=== PATIENT | female | born 1995 | race Two or more races ===

== ENCOUNTER 2017-09-28 12:53 | Emergency (ER) | payer OTHER ==
[2017-09-28 13:02] VITALS: BP 108/70; PULSE 71; TEMP 98; BMI 23.8
--- NOTE | 2017-09-28 13:28 | PDOC ---
History of Present Illness - General Chief Complaint: Redness To Affected Area Stated Complaint: FINGER INJURY Time Seen by Provider: 09/28/17 13:12 History Source: Patient - History of Present Illness Timing/Duration: reports: other Location: reports: extremities Past History - Past Medical History Allergies/Adverse Reactions: Allergies Allergy/AdvReac Type Severity Reaction Status Date / Time No Known Allergies Allergy Verified 09/28/17 13:02 - Suicide/Smoking/Psychosocial Hx Smoking History: Never smoked Have you smoked in the past 12 months: No Information on smoking cessation initiated: No Hx Alcohol Use: No Drug/Substance Use Hx: No Review of Systems - Review of Systems Constitutional: No: Fever *Physical Exam - Vital Signs Last Vital Signs Temp Pulse Resp BP Pulse Ox 98.0 F 71 16 108/70 100 09/28/17 13:00 09/28/17 13:00 09/28/17 13:00 09/28/17 13:00 09/28/17 13:00 - Physical Exam General Appearance: Yes: Appropriately Dressed. No: Apparent Distress HEENT: positive: Normal Voice Neck: positive: Supple Respiratory/Chest: negative: Respiratory Distress Integumentary: positive: Dry, Warm, Other (small superficial open wound to tip of R 5th digit, no erythema, swelling or discharge) Neurologic: positive: Fully Oriented, Alert, Normal Mood/Affect Medical Decision Making - Medical Decision Making 09/28/17 13:25 21-year-old female, no significant history, here for evaluation of finger wound. Patient states 5 days ago she sustained an avulsion lac to tip of right pinky with a knife and here today because she noticed a small amount of pus to site yesterday. Otherwise no worsening pain, swelling and no fever. Patient well-appearing and stable with minor superficial open wound to tip of right 5th digit with no evidence of infection at this time. Tetanus UTD. Local wound care and dressing in ED. Dc with reassurance and local wound care at home. Reasons to return discussed with patient 09/28/17 13:27 *DC/Admit/Observation/Transfer Diagnosis at time of Disposition: Wound, open, finger Qualifiers: Encounter type: initial encounter Qualified Code(s): S61.209A - Unspecified open wound of unspecified finger without damage to nail, initial encounter - Discharge Dispostion Disposition: HOME Condition at time of disposition: Good - Referrals - Patient Instructions Printed Discharge Instructions: Minor Wounds (Alternative Therapy) Additional Instructions: vu herida no parece estar infectada en perla momento. Por favor, aplique bacitracin o Neosporin glenis vez al da para herir a fin de prevenir la infeccin y mantener la herida tapada hasta que comience a formar costras y se forme sarna. Los signos de infeccin son enrojecimiento alrededor de la herida, hinchazn y fiebre. Si los sntomas ocurren, regrese para glenis nueva evaluacin Print Language: MACANESE - Post Discharge Activity
== END 2017-09-28 14:13 | disposition home or self-care (01) ==
LOC: JERFT 12:53
DX: S61.206A Unspecified open wound of right little finger without damage to nail, initial encounter (principal); W26.0XXA Contact with knife, initial encounter; Y93.89 Activity, other specified; Y92.89 Other specified places as the place of occurrence of the external cause; Y99.8 Other external cause status
CPT/HCPCS: 99281-25

== ENCOUNTER 2018-11-28 15:08 | Emergency (ER) | payer OTHER ==
[2018-11-28 15:18] VITALS: BMI 23.0
[2018-11-28] MEDS ORDERED: diphenhydrAMINE HCL 25 MG CAPSULE (FP) PO ONE ×2 (15:51→16:00)
[2018-11-28] MEDS ORDERED: predniSONE 20 MG TABLET (UD) PO ONE (15:51)
[2018-11-28] MEDS ORDERED: RANITIDINE HCL 150 MG TABLET (FP) PO ONE (15:51)
--- NOTE | 2018-11-28 15:54 | PDOC ---
History of Present Illness - General Chief Complaint: Allergic Reaction Stated Complaint: skin irritation History Source: Patient Exam Limitations: No Limitations - History of Present Illness Initial Comments: 11/28/18 15:52 23 yo F no pmhx here with c/o generalized itchy rash. started today few hours ago. pt states she ate a turkey panini, believes she was allergic to something in the food. no h/o severe allergic reactions or known food allergy. diffuse pruritic rash. no tongue or lip swelling. no n/v no sob. no wheezing. no new shampoo, lotion or body wash. no new detergent. did not take anything for her sxs prior to arrival. Past History - Past Medical History Allergies/Adverse Reactions: Allergies Allergy/AdvReac Type Severity Reaction Status Date / Time No Known Allergies Allergy Verified 11/28/18 15:18 Home Medications: Ambulatory Orders Prednisone [Deltasone] 20 mg PO BID #10 tablet 11/28/18 COPD: No - Suicide/Smoking/Psychosocial Hx Smoking History: Never smoked Have you smoked in the past 12 months: No Hx Alcohol Use: No Drug/Substance Use Hx: No Review of Systems - Review of Systems Constitutional: No: Chills, Diaphoresis HEENTM: No: Eye Pain, Other Respiratory: No: Cough, Orthopnea Cardiac (ROS): No: Chest Pain, Edema : No: Burning, Dysuria Musculoskeletal: No: Back Pain Integumentary: Yes: Pruritus, Rash. No: Bruising, Change in Color Neurological: No: Headache, Numbness All Other Systems: Reviewed and Negative *Physical Exam - Vital Signs Last Vital Signs Temp Pulse Resp BP Pulse Ox 98.2 F 75 16 109/64 97 11/28/18 15:14 11/28/18 15:14 11/28/18 15:14 11/28/18 15:14 11/28/18 15:14 - Physical Exam Comments: 11/28/18 15:53 awake alert lungs clear bilat heart rrr no mrg abd soft nt nd ext wwp . skin with diffuse uritacarial like rash. no tongue or lip swelling. no wheezing. Medical Decision Making - Medical Decision Making 11/28/18 15:53 allergic uricaria. plan benadryl steroids. darlin dc home with 3 day rx for steroids. ucg 11/28/18 17:29 pt feeling improved dc home. *DC/Admit/Observation/Transfer Diagnosis at time of Disposition: Allergic urticaria - Discharge Dispostion Disposition: HOME Condition at time of disposition: Improved Decision to Admit order: No - Prescriptions Prescriptions: Prednisone [Deltasone] 20 mg PO BID #10 tablet - Referrals Referrals: Yady Diamond MD [Primary Care Provider] - - Patient Instructions Printed Discharge Instructions: DI for General Allergic Reactions Additional Instructions: you can take benadryl 25 mg every 6 hrs as needed for itching, take steroids prednisone 20 mg twice daily x 5 days start tomorrow on 11/29/18. return for any difficulty breathing or tongue or lip swelling or any concerns. - Post Discharge Activity
[2018-11-28] MEDS ORDERED: predniSONE 20 MG TABLET (UD) ONE (15:59)
[2018-11-28 17:27] VITALS: BP 115/75; PULSE 78; TEMP 98.5
== END 2018-11-28 17:39 | disposition home or self-care (01) ==
LOC: JER 15:08
DX: L50.0 Allergic urticaria (principal); T78.49XA Other allergy, initial encounter; X58.XXXA Exposure to other specified factors, initial encounter
CPT/HCPCS: 84703; 99283-25

== ENCOUNTER 2018-11-30 20:22 | Emergency (ER) | payer OTHER ==
[2018-11-30 20:32] VITALS: TEMP 98.3; BMI 23.0
[2018-11-30] MEDS ORDERED: SODIUM CHLORIDE 1,000 ML IV STA (21:16)
[2018-11-30] MEDS ORDERED: FAMOTIDINE 20 MG/50 ML IVPB 20 MG/50 ML MG IVPB ONE ×2 (21:16→21:42)
[2018-11-30] MEDS ORDERED: methylPREDNISolone NA SUCC 125 MG/2 ML VIAL IVPUSH ONE (21:16)
[2018-11-30] MEDS ORDERED: methylPREDNISolone NA SUCC 125 MG/2 ML VIAL ONE (21:42)
--- NOTE | 2018-11-30 21:48 | PDOC ---
Attending Attestation - Resident Resident Name: MinnieColton - ED Attending Attestation I have performed the following: I have examined & evaluated the patient, The case was reviewed & discussed with the resident, I agree w/resident's findings & plan, Exceptions are as noted - HPI HPI: 11/30/18 21:43 this 23 yo female presents w 2 days of itchy rash ,Seen 11/28 d placed on steroids and Benadryl head ncat,no lip swelling,uvula midline with no edema lungs cta b/l cvs [id number] abd nontender skin fine rash on arms and back neuro axox3,no focal neuro deficits - Physicial Exam PE: 11/30/18 22:54 PLEASE SEE ABOVE PHYSICAL EXAM - Medical Decision Making 11/30/18 22:52 pt wants RX for hydrocortisone cream and 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
--- NOTE | 2018-11-30 21:54 | PDOC ---
History of Present Illness - General Chief Complaint: Allergic Reaction Stated Complaint: ALLERGIC REACTION Time Seen by Provider: 11/30/18 21:12 History Source: Patient Exam Limitations: Language Barrier (ghanaian) - History of Present Illness Initial Comments: 11/30/18 21:53 Cecilia Bnoilla is a 23y previously healthy F presenting w skin rash. Generalized itchy skin rash started 4d ago after she ate a turkey panini. She was seen in the ED 2d ago for skin rash diagnosed as urticaria sent home w benadryl and prednisone prescriptions. Had an episode of throat closing and SOB yesterday which self resolved. Currently complains of itchy red skin rashes on R elbow, L knee, L flank, L paraspinal thoracic back region. 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 She did not work for the last 2 days. No other changes in home soap/cleaning products, diet. Denies fever, cough, nausea/vomiting, chest/AB pain, urinary/bowel mvmt changes. Pt denied recent travel/surgery/leg swelling/hemoptysis/past PE/DVT. She ate turkey panini in the past without complications. Past History - Travel Traveled outside of the country in the last 30 days: No - Past Medical History Allergies/Adverse Reactions: Allergies Allergy/AdvReac Type Severity Reaction Status Date / Time No Known Allergies Allergy Verified 11/30/18 20:30 Home Medications: Ambulatory Orders Prednisone [Deltasone] 20 mg PO BID #10 tablet 11/28/18 Diphenhydramine [Benadryl -] 50 mg PO TID 5 Days #15 capsule 11/30/18 Hydrocortisone Butyrate [Locoid] 45 gm TP PRN #1 cream..g. 11/30/18 Asthma: No COPD: No Diabetes: No HTN: No - Suicide/Smoking/Psychosocial Hx Smoking History: Never smoked Have you smoked in the past 12 months: No Hx Alcohol Use: No Drug/Substance Use Hx: No Review of Systems - Review of Systems Constitutional: No: Chills, Fever HEENTM: Yes: Throat Swelling. No: Eye Pain, Nose Pain, Throat Pain, Mouth Pain Respiratory: Yes: Shortness of Breath. No: Wheezing Cardiac (ROS): No: Chest Pain, Edema, Palpitations, Syncope ABD/GI: No: Abdominal Distended, Constipated, Diarrhea, Nausea, Vomiting : No: Burning, Dysuria, Discharge, Frequency, Flank Pain, Hematuria Musculoskeletal: No: Back Pain, Joint Pain, Muscle Pain Integumentary: Yes: Pruritus, Rash Neurological: No: Headache, Seizure, Tingling, Tremors Psychiatric: No: Anxiety, Depression, Stressors Endocrine: No: Excessive Sweating, Flushing, Intolerance to Cold, Intolerance to Heat Hematologic/Lymphatic: No: Anemia, Blood Clots, Easy Bleeding *Physical Exam - Vital Signs Last Vital Signs Temp Pulse Resp BP Pulse Ox 98.3 F 73 18 105/58 L 96 11/30/18 20:30 11/30/18 20:30 11/30/18 20:30 11/30/18 20:30 11/30/18 20:30 - Physical Exam General Appearance: Yes: Nourished, Appropriately Dressed. No: Apparent Distress HEENT: positive: EOMI, SATYA, Normal Voice (speaking full sentences comfortably) . negative: Scleral Icterus (R), Scleral Icterus (L), Nasal Congestion, Rhinorrhea, Lesions Respiratory/Chest: positive: Lungs Clear, Normal Breath Sounds. negative: Chest Tender, Respiratory Distress, Crackles, Rales, Rhonchi, Stridor, Wheezing Cardiovascular: positive: Regular Rhythm, Regular Rate, S1, S2. negative: Edema , Murmur Extremity: positive: Normal Capillary Refill. negative: Swelling Integumentary: positive: Hives (R elbow, L knee, L flank, L paraspinal thoracic region) Neurologic: positive: Fully Oriented, Alert, Normal Mood/Affect, Normal Response , Responsive. negative: Numbness, Confused, Disoriented ED Treatment Course - Medications Given in the ED: ED Medications Discontinued Medications Generic Name Dose Route Start Last Admin Trade Name Freq PRN Reason Stop Dose Admin Diphenhydramine HCl 50 mg 11/30/18 21:16 11/30/18 21:48 Benadryl Injection - IVPUSH 11/30/18 21:17 50 mg ONCE ONE Administration Famotidine/Sodium Chloride 20 mg in 50 mls @ 100 mls/hr 11/30/18 21:16 21:48 Pepcid 20 Mg Premixed Ivpb - IVPB 11/30/18 21:45 100 mls/hr ONCE ONE Administration Methylprednisolone Sodium Succinate 125 mg 11/30/18 21:16 11/30/18 21:48 Solu-Medrol - IVPUSH 11/30/18 21:17 125 mg ONCE ONE Administration Medical Decision Making - Medical Decision Making 11/30/18 22:07 Benadryl pepcid solumedrol fluids Cecilia Bonilla is a 23y previously healthy F presenting w skin rash. 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 Pt is in no respiratory distress, O2 sats wnl, clear lung gilliam. SOB due to PE ruled out with PERC criteria. Pt felt better after benadryl, pepcid, solumedrol, 1L NS. D/c home w dermatology and medical group referral, benadryl and hydrocortisone cream prescriptions *DC/Admit/Observation/Transfer Diagnosis at time of Disposition: Allergic urticaria - Discharge Dispostion Disposition: HOME Condition at time of disposition: Improved Decision to Admit order: No - Prescriptions Prescriptions: Diphenhydramine [Benadryl -] 50 mg PO TID 5 Days #15 capsule Hydrocortisone Butyrate [Locoid] 45 gm TP PRN #1 cream..g. - Referrals Referrals: Korina Nation MD [Staff Physician] - INA GARCIA MD [Staff Physician] - - Patient Instructions Printed Discharge Instructions: DI for General Allergic Reactions Additional Instructions: You were seen for skin rash. 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 Please see the referred guide excursion Dr. Nation or [facility] if you continue to have skin rash. Take your prescribed benadryl three times a day and hydrocortisone cream to your rashes as needed. Come back to the ED immediately if you have throat closing, trouble breathing, or vomiting. --- Te vieron por erupcin cutnea. Es probable que vu erupcin sea glenis reaccin alrgica a algo que contact en vu nuevo trabajo de stars specialist o comida que comi. Consulte al dermatlogo derivado Dr. Nation o [facility] si contina teniendo erupcin cutnea. Strong vu benadryl prescrito kayode veces al da y crema de hidrocortisona para shorty erupciones cutneas segn sea necesario. Regrese al servicio de urgencias de inmediato si tiene un cierre de garganta, problemas para respirar o vmitos. Print Language: MALAY - Post Discharge Activity
[2018-11-30 23:11] VITALS: BP 109/74; PULSE 78
== END 2018-11-30 23:11 | disposition home or self-care (01) ==
LOC: JERFT 20:22 → JER 20:22
DX: L50.0 Allergic urticaria (principal)
CPT/HCPCS: 99282-25; J7030

== ENCOUNTER 2021-04-05 19:01 | Emergency (ER) | payer OTHER ==
[2021-04-05 19:19] VITALS: BP 132/80; PULSE 66; TEMP 98.3; BMI 26.5
[2021-04-05] MEDS ORDERED: DEXAMETHASONE LIQUID 0.5 MG/5 ML PO ONE (20:10)
[2021-04-05] MEDS ORDERED: DEXAMETHASONE SOD PHOSPHATE 10 MG/1 ML VIAL ONE (20:13)
== END 2021-04-05 20:32 | disposition home or self-care (01) ==
LOC: JERFT 19:01
PROC: 3E023GC Introduction of Other Therapeutic Substance into Muscle, Percutaneous Approach (ICD-10-PCS; principal; 2021-04-05)
DX: R21 Rash and other nonspecific skin eruption (principal)
CPT/HCPCS: 96372; 99284-25

== ENCOUNTER 2023-02-09 00:59 | Emergency (ER) | payer OTHER ==
[2023-02-09 01:06] VITALS: BP 115/75; PULSE 87; RESP 18; TEMP 97.8; BMI 23.3
[2023-02-09] MEDS ORDERED: ACETAMINOPHEN 1000 MG/100 ML BAG IVPB ONE (02:01)
[2023-02-09] MEDS ORDERED: ACETAMINOPHEN INJECTION 100 ML IVPB ONE (02:16)
[2023-02-09 02:21] LABS: BASO % 0.4 % (0-2.0); EOS % 1.9 % (0-4.5); HEMATOCRIT 38.1 % (32.4-45.2); HEMOGLOBIN 12.9 GM/dL (10.7-15.3); LYMPH % 24.4 % (8-40); MCH 31.2 pg (25.7-33.7); MCHC 33.9 g/dl (32.0-36.0); NEUT % 67.3 % (42.8-82.8); PLATELET COUNT 302 10^3/uL (134-434); RBC 4.14 M/mm3 (3.60-5.2); RDW 13.2 % (11.6-15.6)
[2023-02-09 02:41] LABS: MAGNESIUM 2.2 mg/dL (1.8-2.4)
[2023-02-09 03:16] LABS: PH,URINE 5.5 (5.0-8.0); URINE APPEARANCE TURBID; URINE BILIRUBIN NEGATIVE (NEGATIVE); URINE COLOR YELLOW; URINE GLUCOSE (UA) NEGATIVE (NEGATIVE); URINE KETONE TRACE (NEGATIVE); URINE LEUK ESTERASE NEGATIVE (NEGATIVE); URINE NITRITE NEGATIVE (NEGATIVE); URINE PROTEIN TRACE (NEGATIVE)
[2023-02-10 01:27] LABS: POTASSIUM 4.1 mmol/L (3.5-5.1)
[2023-02-10 01:29] LABS: CALCIUM 8.6 mg/dL (8.5-10.1)
[2023-02-10 01:30] LABS: ALBUMIN 4.3 g/dl (3.4-5.0); BLOOD UREA NITROGEN 10.2 mg/dL (7-18)
[2023-02-10 01:33] LABS: CREATININE 0.7 mg/dL (0.55-1.3)
[2023-02-10 01:35] LABS: BILIRUBIN,TOTAL 0.3 mg/dL (0.2-1); TOT PROT 8.4 g/dl (6.4-8.2)
== END 2023-02-09 04:08 | disposition home or self-care (01) ==
LOC: JER 00:59
PROC: 3E033NZ Introduction of Analgesics, Hypnotics, Sedatives into Peripheral Vein, Percutaneous Approach (ICD-10-PCS; principal; 2023-02-09)
DX: R10.32 Left lower quadrant pain (principal)
CPT/HCPCS: 36415; 80053; 81003; 82550; 83690; 83735; 84484; 84703; 85025; 86850; 86900; 86901; 87086; 99284-25